=== PATIENT | female | born 1950 | race Caucasian/White ===

== ENCOUNTER 2017-01-07 18:53 | Observation (INO) | payer MEDICARE, OTHER ==
[2017-01-07] VITALS (16 sets, daily range): BP systolic 105–147; BP diastolic 54–86; PULSE 82–150; RESP 8–17; O2SAT 96–99
[~2017-01-07] VITALS: Ht 167.6 cm; Wt 78.5 kg
[2017-01-07] MEDS ORDERED: Adenosine 3 mg/mL 2 mL Inj ONE (19:09)
--- NOTE | 2017-01-07 19:09 | ED.REPORT ---
HPI-Chest Pain 40 and Over Date of Service Jan 07, 2017 ED Provider: Quentin Flores DO Patient is a 66 year old female who presents to the ED complaining of intermittent heart palpitations since last night. Associated symptoms include nausea, weakness and lightheadedness. She denies diarrhea. Patient reports that while she was at dinner last night and she felt her heart start racing. She went to bed and felt normal this morning until she was holding her grandson this afternoon, when she began to feel weak and her heart started racing again. Patient states that she has never experienced this before but a year ago her doctor informed her that she had an irregular heartbeat. When she went in for testing, it was unremarkable. Nursing Notes Stated Complaint: DIZZY, HEART RACING, PULSE 140-143 Chief Complaint: Dysrhythmia/Cardiac Nursing Notes Reviewed: Yes Allergies: Coded Allergies: No Known Allergies (Verified , 01/05/04) No Active Prescriptions or Reported Meds General Time Seen by MD: 19:08 Chief Complaint Other (heart palpitations) Hx Obtained From: Patient Arrived By: Walk-in Sudden in Onset?: Yes Onset Occurred: Yesterday Symptom Duration: Intermittent Recent Healthcare: No recent doctor visit, No recent hospitalization Similar Sx Previous: No Past Medical History Past Medical History none reported Smoking History Unknown if Ever Smoker Social History Alcohol Use: "Social" Other Social History: Good social support Ambulatory Status Independent Review of Systems Constitutional: Reports: Weakness - generalized, Denies: Chills, Fever Respiratory: Denies: Non-productive cough, Shortness of breath Cardiovascular: Reports: Palpitations GI: Reports: Nausea, Denies: Diarrhea, Vomiting Skin: Denies Diaphoresis Neurologic: Reports: Lightheaded Complete sys rev & neg: except as marked. Physical Exam Initial Vital Signs Vital Signs (First) Date Time Temp Pulse Resp B/P Pulse Ox O2 Delivery O2 Flow Rate FiO2 01/07/17 19:00 145 17 141/84 98 Room Air Initial VS: Reviewed General/Constitutional: Awake, Alert Distress / Hydration: Positive: Distress moderate Respiratory / Chest: Atraumatic, Breath sounds NL, Breath sounds = bilat, No respiratory distress Cardiovascular: Regular rhythm, Heart sounds NL Heart Rate / Rhythm: Positive: Tachycardia Abdomen: Atraumatic, Soft, Non-tender Interpretation & Diagnostics Lab Results Interpretation Result Diagram: 01/08/1739901/08/17399 Test 01/07/17 19:10 Magnesium Level 2.1mg/dL (1.6-2.6) Thyroid Stimulating Hormone (TSH) 0.005uIU/mL (0.450-4.500) Free Thyroxine 1.74ng/dL (0.82-1.77) ECG Interpretation ECG Interpretation: sinus tachycardia, rate [address] depression, anterolateral leads Time: 19:05 Interpreted by: ED physician X-Ray Chest Interpretation Chest Xray Interpretation: IMPRESSION: No acute disease. Pacemaking/defibrillation leads overlie the heart Dictated by: Juwan Ureña M.D. on 01/07/2017 at 19:50 Approved by: Juwan Ureña M.D. on 01/07/2017 at 19:51 View: Portable, 1 view Interpretation / Wet Read by: Interpret - Radiologist Procedures Proced Mod Sedation/Analgesia Time: 21:32 Procedure Performed by: ED physician Sedation Time: 10 - 15 min Consent / Setup: Informed consent provided, Consent from patient, Time-out performed Indication: Other (SVT treatment) Preparation: environmental monitoring specialist applied, Pulse oximeter applied, Constant attendance, IV access established, Eval last meal time, Supplemental oxygen, Procedure explained, Suction available VS Prior to Procedure: All vital signs normal Mallampati: Class & Anatomy: 2 top tonsil/uvula/palate Airway Exam: Normal facial anatomy, Normal neck anatomy, Normal anatomy CVS/Resp Exam: Normal breath sounds, Normal heart sounds Neuro Exam: Alert Sedation: Sedation: Etomidate, Sedation: Versed ASA Classification: 2 mild systemic disease Response During Procedure: Handled secretions adeq, Maintained airway well, Oxygenation stable, Sedation appropriate, Vital signs stable Complications During/After: None Reversal: None required Mental Status After Procedure: Alert Post-Procedure: Pt rtn pre-proc baseline, Vital signs normal Attestation: I performed procedure, I performed sedation SVT Treatment cardioversion performed at 2134 100 Joules Time: 19:30 Procedure Performed by: ED physician Consent / Timeout / Setup: Consent from patient, Time-out performed, Pulse oximeter applied, environmental monitoring specialist applied Adenosine IV Attempt # 1: Dose 6mg IVP, Unsuccessful Adenosine IV Attempt # 2: Dose 12mg IVP, Transient success Synch Cardioversion: Successful Procedural Sedation/Analgesia: Sedation: Etomidate, Sedation: Versed Post-Procedure: No complications, Tolerated procedure well, Patient stable Re-Eval/Medical Decision Med Decision/Clinical Course After 12mg of Adenosine was given, EKG showed clear signs of atrial flutter. Max dose was given with transient success from sinus back to atrial flutter. Consulted cardio who recommended cardioversion and admit for overnight observation. Patient went back into sinus rhythm after successful cardioversion. Time of Eval: 19:15 Re-Evaluation/Progress Note: Discussed plan for adenosine SVT treatment. Patient understands and agrees to plan. All questions were addressed. Time of Eval: 19:40 Patient Status: Condition improved Re-Evaluation/Progress Note: Discussed results and plan for admission. Patient understands and agrees to plan. All questions were addressed. Time of Eval: 20:38 Re-Evaluation/Progress Note: Patient is still in atrial flutter Time of Eval: 20:58 Re-Evaluation/Progress Note: Discussed plan for cardioversion. Patient understands and agrees to plan. All questions were addressed. Consultation #1: Referral / Consult Name: Alena Weiner MD Consulted With: Cardiology Call Returned at: 20:36 Web Services Manager: Agrees with eval, Agrees with plan Note: Consult with Dr. Weiner, zoo director, who recommends cardioversion for the patient. Consultation #2: Referral / Consult Name: Zelda Plascencia DO Consulted With: Hospitalist Call Returned at: 22:15 Web Services Manager: Agrees with eval, Agrees with plan, Accepts admit Counseled Regarding: Diagnosis, Lab results, Need for admission Discharge & Departure Primary Impression: Atrial flutter Atrial flutter type: unspecified Qualified Code: I48.92 - Unspecified atrial flutter Disposition: ADMITTED TO HOSPITAL Discharge Condition All VS Reviewed: Yes Condition: Stable Referrals: Dina Samayoa ND, Diana (PCP) Crit Care Except Billable Proc Time Spent: 75-104 minutes Services Performed: Patient management by me, Time spent at bedside, Reviewing test results, Reviewing imaging, Discussing patient care, Documentation in record, Time with fam/surrogate Scribe Attestation Portions of this note were transcribed by Kelly Choi. I, Dr. Flores personally performed the history, physical exam and medical decision-making; I reviewed and confirmed the accuracy of the information in the transcribed note. Signed by: Kyle Mandujano, 01/07/17 and 1832. copies to: Dina Samayoa ND, Diana Quentin Flores Jan 07, 2017 19:09 StephJodee Upton Jan 07, 2017 19:39 Proced Mod Sedation/Analgesia Time: 21:32 Procedure Performed by: ED physician Sedation Time: 10 - 15 min Consent / Setup: Informed consent provided, Consent from patient, Time-out performed Indication: Other (SVT treatment) Preparation: environmental monitoring specialist applied, Pulse oximeter applied, Constant attendance, IV access established, Eval last meal time, Supplemental oxygen, Procedure explained, Suction available VS Prior to Procedure: All vital signs normal Mallampati: Class & Anatomy: 2 top tonsil/uvula/palate Airway Exam: Normal facial anatomy, Normal neck anatomy, Normal anatomy CVS/Resp Exam: Normal breath sounds, Normal heart sounds Neuro Exam: Alert Sedation: Sedation: Etomidate, Sedation: Versed ASA Classification: 2 mild systemic disease Response During Procedure: Handled secretions adeq, Maintained airway well, Oxygenation stable, Sedation appropriate, Vital signs stable Complications During/After: None Reversal: None required Mental Status After Procedure: Alert Post-Procedure: Pt rtn pre-proc baseline, Vital signs normal Attestation: I performed procedure, I performed sedation SVT Treatment cardioversion performed at 2134 100 Joules Time: 19:30 Procedure Performed by: ED physician Consent / Timeout / Setup: Consent from patient, Time-out performed, Pulse oximeter applied, environmental monitoring specialist applied Adenosine IV Attempt # 1: Dose 6mg IVP, Unsuccessful Adenosine IV Attempt # 2: Dose 12mg IVP, Transient success Synch Cardioversion: Successful Procedural Sedation/Analgesia: Sedation: Etomidate, Sedation: Versed Post-Procedure: No complications, Tolerated procedure well, Patient stable Re-Eval/Medical Decision Med Decision/Clinical Course After 12mg of Adenosine was given, EKG showed clear signs of atrial flutter. Max dose was given with transient success from sinus back to atrial flutter. Consulted cardio who recommended cardioversion and admit for overnight observation. Patient went back into sinus rhythm after successful cardioversion. Time of Eval: 19:15 Re-Evaluation/Progress Note: Discussed plan for adenosine SVT treatment. Patient understands and agrees to plan. All questions were addressed. Time of Eval: 19:40 Patient Status: Condition improved Re-Evaluation/Progress Note: Discussed results and plan for admission. Patient understands and agrees to plan. All questions were addressed. Time of Eval: 20:38 Re-Evaluation/Progress Note: Patient is still in atrial flutter Time of Eval: 20:58 Re-Evaluation/Progress Note: Discussed plan for cardioversion. Patient understands and agrees to plan. All questions were addressed. Consultation #1: Referral / Consult Name: Alena Weiner MD Consulted With: Cardiology Call Returned at: 20:36 Web Services Manager: Agrees with eval, Agrees with plan Note: Consult with Dr. Weiner, zoo director, who recommends cardioversion for the patient. Consultation #2: Referral / Consult Name: Zelda Plascencia DO Consulted With: Hospitalist Call Returned at: 22:15 Web Services Manager: Agrees with eval, Agrees with plan, Accepts admit Counseled Regarding: Diagnosis, Lab results, Need for admission Discharge & Departure Primary Impression: Atrial flutter Atrial flutter type: unspecified Qualified Code: I48.92 - Unspecified atrial flutter Disposition: ADMITTED TO HOSPITAL Discharge Condition All VS Reviewed: Yes Condition: Stable Referrals: Dina Samayoa ND, LAc (PCP) Crit Care Except Billable Proc Time Spent: 75-104 minutes Services Performed: Patient management by me, Time spent at bedside, Reviewing test results, Reviewing imaging, Discussing patient care, Documentation in record, Time with fam/surrogate Scribe Attestation Portions of this note were transcribed by Kelly Choi. I, Dr. Flores personally performed the history, physical exam and medical decision-making; I reviewed and confirmed the accuracy of the information in the transcribed note. Signed by: Kyle Mandujano, 01/07/17 and 1832. copies to: Dina Samayoa ND, LAc Beia, Todd P DO Jan 07, 2017 19:09 Jodee Choi Jan 07, 2017 19:39
[2017-01-07] MEDS ORDERED: Diltiazem 5 mg/mL 5 mL Inj IVPUSH ONE ×2 (19:10→19:45)
[2017-01-07] MEDS ORDERED: Adenosine 3 mg/mL 2 mL Inj IVPUSH ONE ×2 (19:10)
[2017-01-07 19:27] LABS: BASOPHILS % (AUTO) 0.2 % (0-3); EOSINOPHILS % (AUTO) 0.4 % (0-5); MONOCYTES % (AUTO) 8.8 % (4-12); Mean Corpuscular Hemoglobin 30.2 pg (27.0-35.0); Mean Corpuscular Volume 88.4 fL (81-100); NEUTROPHILS % (AUTO) 67.1 % (40-74); Platelet Count 255 bil/L (150-400)
[2017-01-07] MEDS ORDERED: Diltiazem Inj 125 MG in 0.9% Sodium Chloride 100 ML, Pharmacy To Mix 1 EA IV SCH ×2 (19:35→19:45)
[2017-01-07 19:50] LABS: TROPONIN T < 0.010 ug/L (0.0-0.011)
--- NOTE | 2017-01-07 19:53 | DRSVH ---
PROCEDURE: X-RAY CHEST ONE VIEW, PORTABLE ([id number]) INDICATIONS: tachcardia TECHNIQUE: One view of the chest was acquired. COMPARISON: None. FINDINGS: Surgical changes and devices: None. Lungs and pleura: No pleural effusions or pneumothorax. Lungs are clear. Mediastinum: Mediastinal contours appear normal. Heart size is normal. Bones and chest wall: No suspicious bony lesions. Overlying soft tissues appear unremarkable. IMPRESSION: No acute disease. Pacemaking/defibrillation leads overlie the heart Dictated by: Juwan Ureña M.D. on 01/07/2017 at 19:50 Approved by: Juwan Ureña M.D. on 01/07/2017 at 19:51
[2017-01-07 19:59] LABS: Magnesium 2.1 mg/dL (1.6-2.6)
[2017-01-07] MEDS ORDERED: Etomidate 2 mg/mL 20 mL Inj IV ONE (21:10)
[2017-01-07] MEDS ORDERED: MeTOProlol 1 mg/mL 5 mL Inj IVPUSH SCH (21:15)
[2017-01-07] MEDS ORDERED: Heparin 5,000 Unit/mL Inj IVPUSH ONE (21:45)
[2017-01-07] MEDS ORDERED: Heparin 25K Unit/500mL 0.45 NS 25,000 UNIT in IV Premix 1 EACH IV ONE (21:45)
--- NOTE | 2017-01-07 22:34 | PCM.HPMED ---
Subjective Date of Service Jan 07, 2017 Primary Provider: Admitting Physician: Zelda Plascencia DO Primary Care Physician: Jered Attending Physician: Zelda Plascencia DO Admit Status: From the Emergency Department Chief Complaint: Complains of intermittent generalized weakness fatigue shortness of breath, dyspnea and lightheadedness associated with her intermittent heart racing for the past 2 days. History of Present Illness: Olivia is a pleasant 66 year old female with history of 10 pregnancies, and 5 current living children status post hysterectomy, with chronic hypothyroidism treated by her [facility] with [place] thyroid. She presented to the ED today with complaint of new onset rapid onset extreme fatigue and associated with a rapid heart rate she described as palpitations on the evening prior to admission while eating dinner. She states she went to bed that night and felt fine the next morning. She was able to attend hinduism and then go to the park with her family. She states that when she went to pickers material handlers her grandson she again started to feel extreme fatigue with shortness of breath dyspnea and more palpitations. She states that she was unable to carry her grandson and had to put him down. He was then able to walk a little further however with difficulty because of her shortness of breath. This required her to sit down and rest. She returned home with her Jesús and took her blood pressure which was in the normal range but her heart rate was in the 140s. This prompted them to come to the emergency department. Associated symptoms include the sensation that she was ill, generalized weakness and lightheadedness. The patient states her Naturopathic physician recently had her [place] Thyroid dose increased from 240 mg daily to 360 mg daily. She states she also takes an additional medication "Thyrocare" supplement. She denies chest pain, cough, fevers, chills, nausea, vomiting, abdominal pain, headaches, seizures, sore throat, diarrhea. Patient states that she has never experienced this before but a year ago her doctor informed her that she had an irregular heartbeat. Patient was reportedly evaluated with further testing that returned unremarkable. In the ED: Patient was successfully cardioverted, and started on heparin drip ( PTT 25.7), patient was started on diltiazem drip for rate control in the ED. patient was then admitted to the hospital for continuous cardiac monitoring and further management for her atrial flutter. Chest x-ray showed no acute cardiopulmonary changes Vital signs: Pulse 147, blood pressure 121/66 with a map of 84, 97% on room air. Hemogram showed: WBC 10.2, PMNs 67.1%, lymphs 23.2%, H/H 15.3/44.8, platelets 255. Chemistry panel: Glucose 123, calcium 10.5, TSH low at 0.005, free T4 1 0.74 PTT 25.7 EKG showed sinus tachycardia with a rate of 143, borderline ST depression in the anterior lateral leads. Troponin was 0.010 Review of Systems: A comprehensive review of systems was conducted and was negative except as mentioned in history of present illness. Allergies Coded Allergies: No Known Allergies (Verified , 01/05/04) Home Medications [place] Thyroid 360 mg daily(note natural thyroid medication is dosed in milligrams not micrograms) Thyrocare unknown dose PMH Hypothyroidism Surgical History Hysterectomy bladder Sling Family History Mother with hx heart disease and hs of Parkinson's Social History Hx Alcohol Use: No (OCCASIONAL) Hx Substance Use: No Hx Tobacco Use: No Smoking Status: Unknown if Ever Smoker Living Arrangement: with Family (with her Jesús) Exam Vital Signs Vital Sign - Last Date Time Temp Pulse Resp B/P Pulse Ox O2 Delivery O2 Flow Rate FiO2 01/07/17 21:49 82 13 107/58 97 Room Air Exam General: Alert and oriented 3, in no acute distress, resting comfortably in bed , speaking in full sentences HEENT: NC/AT, eyes, PERRLA, EOMI, neck, soft supple, no adenopathy, no JVD, no masses, no thyromegaly, throat mucous membranes pink and moist, no erythema, no exudates, no tonsillar swelling, no uvular deviation. Orthodontics lower front teeth Lungs: CTAB all theodore, no wheezes, no rhonchi, no crackles, no adventitious lung sounds, no use of accessory muscles of respiration, good air movement, good respiratory effort. Heart: Regular rate and rhythm, no murmur, S1-S2 present, no rub, no click, no distant heart sounds, GI / Genitourinary: No CVA tenderness, no suprapubic tenderness, no [place] catheter, Extremities: Muscle strength, 5 out of 5 upper and symmetric bilaterally, pulses equal and symmetric upper/lower extremity including radial and dorsalis pedis, no edema Neurologic: Grossly neurologically intact, speaking in full sentences, no focal neurological signs. Skin: Lying, intact with no rash or erythema MSK: no joint erythema / edema Lymph: no cervical or supraclavicular lymphadenopathy Psychiatric: Mood is cheerful and mood and affect are congruent and appropriate. Lab and Diagnostics Result Diagram: 01/07/17190901/07/171909 X-Rays, CTs and MRIs Date of Service: 01/07/171903 PROCEDURE: X-RAY CHEST ONE VIEW, PORTABLE INDICATIONS: tachcardia Surgical changes and devices: None. Lungs and pleura: No pleural effusions or pneumothorax. Lungs are clear. Mediastinum: Mediastinal contours appear normal. Heart size is normal. Bones and chest wall: No suspicious bony lesions. Overlying soft tissues appear unremarkable. IMPRESSION: No acute disease. Pacemaking/defibrillation leads overlie the heart Dictated by: Juwan Ureña M.D. on 01/07/2017 at 19:50 Approved by: Juwan Ureña M.D. on 01/07/2017 at 19:51 Assessment & Plan Patient is a 66 year old female who presents to the ED complaining of intermittent heart palpitations since last night. Associated symptoms include nausea, weakness and lightheadedness. She denies diarrhea. Patient reports that while she was at dinner last night and she felt her heart start racing. She went to bed and felt normal this morning until she was holding her grandson this afternoon, began to feel weak and her heart started racing again. Patient states that she has never experienced this before but a year ago her doctor informed her that she had an irregular heartbeat. When she went in for testing, it was unremarkable. Patient was successfully cardioverted in the emergency room, and started on heparin drip (PTT 25.7), and was started on diltiazem drip for rate control. She was then admitted to the hospital for continuous cardiac monitoring and further management for her atrial flutter. # New-onset atrial flutter, with RVR, present on admission, active -She was successfully cardioverted in the ED and started on heparin drip. -Patient denies any chest pain. -Patient states that she was told by her primary care physician Concepcion Baxter one year ago that she had a irregular rhythm. At that time patient was not symptomatic. Patient denies any similar symptoms to her current complaint prior to these episodes. -Vital signs: Pulse 147, blood pressure 121/66 with a map of 84, 97% on room air. -EKG showed sinus tachycardia, rate 143, borderline ST depression in the anterior lateral leads -Hemogram showed: WBC 10.2, PMNs 67.1%, lymphs 23.2%, H/H 15.3/44.8, platelets 255. -Chemistry panel: Glucose 123, calcium 10.5, TSH low at 0.005, free T4 1 0.74 -Troponin was 0.010 -In ED patient was found to have atrial flutter at a rate of 130s to 140s -Chest x-ray showed no acute cardiopulmonary changes -Foreign Exchange Student Coordinator Dr. Weiner was consulted by the ED, and agrees with admission -Patient cardioverted successfully in the ED -Patient admitted to the hospital for continued medical treatment and observation. -Continuous cardiac monitoring with remote telemetry -We will start metoprolol XL 50 mg -If his rapid A. fib/flutter recurs we will plan to cardiovert patient -We will start anticoagulation heparin -We will repeat troponin # Chronic Hyporthyroidism, present on admission, active -TSH low at 0.005, free T4 within normal range at 1.74 -Patient is seen by a brittny Coyne for hypothyroidism -She states she takes [place] Thyroid, normally takes 240 , but had it increased over the past month or 2, up to 360 daily, patient states she additionally takes a [id number] supplement called "Thyrocare" -We will hold medication [place] thyroid and thyroidcare for now # Leukocytosis, mild, present on admission, active - WBC 10.2 without left shift -We will continue to monitor Disposition: Admitted to in patient service with expected length of stay greater than 2 days, secondary to severity of presenting symptoms, treatment plan, complexity of clinical work up, and risk of adverse events. CODE STATUS: Full code PCP: brittny Novoa DVT PE prophylaxis: Patient currently on heparin drip for atrial flutter Contact: The patient's , VTE Prophylaxis: Other (patient on heparin drip for atrial flutter) Resuscitation Status: CPR: Attempt Resuscitation Salinas Blanton DO Jan 07, 2017 22:34 Zelda Plascencia DO Jan 08, 2017 05:29
[2017-01-07] MEDS ORDERED: Ondansetron 2 mg/mL 2 mL Inj IVPUSH PRN (22:50)
[2017-01-07] MEDS ORDERED: Alum-Mag Hydrox-Simeth 30 mL Suspension PO PRN (22:50)
[2017-01-07] MEDS ORDERED: Polyethylene Glycol (PEG) 17 Gm Powder PO PRN (22:50)
[2017-01-07] MEDS ORDERED: THYR180T2 PO (22:54)
[2017-01-07] MEDS ORDERED: Heparin 25K Unit/500mL 0.45 NS 25,000 UNIT in IV Premix 1 EACH IV SCH (22:55)
[2017-01-07] MEDS ORDERED: MeTOProlol XL 50 mg ER24 Tablet PO SCH (22:55)
[2017-01-07] MEDS ORDERED: Heparin 5,000 Unit/mL Inj IVPUSH PRN (22:55)
[2017-01-07] MEDS: Sodium Chloride LOK Flush 10 mL Syringe IVFLUSH SCH (23:11)
--- NOTE | 2017-01-08 00:40 | NUR ---
NEW ADMIT Pt admitted to [facility], converted to SR in ED. Pt A&Ox3, Indep in room, denies chest pain, Cardiac Hep gtt @ 1200 units/hr. Addendum: 01/08/17 at 0552 by YADIRA RAGLAND RN hep gtt currently @ 1300 units/hr
[2017-01-08 03:05] VITALS: BP 106/70; PULSE 85; RESP 16; O2SAT 98
[2017-01-08 04:19] LABS: BASOPHILS % (AUTO) 0.3 % (0-3); EOSINOPHILS % (AUTO) 1.1 % (0-5); Mean Corpuscular Hemoglobin 30.2 pg (27.0-35.0); Mean Corpuscular Volume 89.2 fL (81-100); Platelet Count 205 bil/L (150-400)
[2017-01-08] MEDS ORDERED: MeTOProlol XL 25 mg ER24 Tablet PO SCH (08:30)
[2017-01-08 09:00] VITALS: BP 107/66; PULSE 93; RESP 16; O2SAT 97
[2017-01-08] MEDS: Sodium Chloride LOK Flush 10 mL Syringe IVFLUSH SCH (09:48)
[2017-01-08 10:47] VITALS: PULSE 89
--- NOTE | 2017-01-08 12:02 | DRSVH ---
[facility] [address] [place] [address] Echocardiogram Report Name: GINA DELANEY JStudy Date : 01/08/2017 Height: 66 in Hospital Exam Location: [facility] Weight: 173 lb Gender: Female BSA: 1.9 m2 : 1950 Age: 66 yrs BP: 106/70 mmHg Reason For Study: Atrial fibrillation Ordering Physician: Performed By: Jennifer ElmoreHiawatha [facility] HospitalIST [facility] Interpretation Summary The left ventricle is borderline dilated but left ventricular systolic function is normal without focal wall motion abnormalities with the ejection fraction estimated to be 55-60%. Diastolic function could not be accurately assessed due to unobtainable data. The right ventricle is borderline dilated but right ventricular systolic function is normal. The right ventricular systolic pressure is estimated at 46 mmHg assuming a right atrial pressure of 15 mm Hg. The left atrium is severely dilated and the right atrium is mildly dilated. There is moderate, perhaps moderately-severe mitral regurgitation and mild to moderate tricuspid regurgitation. There is no other significant valvular heart disease. The patient was in normal sinus rhythm during the exam. Procedure: A two-dimensional transthoracic echocardiogram with color flow and Doppler was performed. The study quality was technically good. There is no prior echocardiogram noted for this patient. The patient was in normal sinus rhythm during the exam. Left Ventricle: The left ventricle is borderline dilated. Left ventricular wall thickness is normal. Left ventricular systolic function is normal without focal wall motion abnormalities. The ejection fraction is estimated to be 55-60%. Diastolic function could not be accurately assessed due to unobtainable data. Right Ventricle: The right ventricle is borderline dilated. The right ventricular systolic function is normal. Atria: The left atrium is severely dilated. The right atrium is mildly dilated. The interatrial septum is intact with no evidence for an atrial septal defect. Mitral Valve: There is mild to moderate mitral annular calcification. The mitral valve leaflets appear mildly thickened, but open well. There is mild mitral valve prolapse. There is moderate mitral regurgitation. Aortic Valve: The aortic valve is trileaflet. The aortic valve opens well. No aortic regurgitation is present. Tricuspid Valve: The tricuspid valve is normal in structure and function. There is mild to moderate tricuspid regurgitation. The right ventricular systolic pressure is estimated at 46 mmHg assuming a right atrial pressure of 15 mm Hg. Pulmonic Valve: The pulmonic valve is normal in structure and function. There is trace pulmonic regurgitation. There is no other significant valvular heart disease. Great Vessels: The aortic root is normal size. The ascending aorta is normal in size. The pulmonary artery is normal size. The IVC is dilated (diameter is greater than 2.1 cm) and it collapses less than 50% with a sniff. This suggests a high right atrial pressure of 15 mm Hg. Pericardium/ Pleura There is no pericardial effusion. There is no pleural effusion. MMode/2D Measurements & Calculations LVIDd: 5.9 cm LA dimension: 4.3 cm RA long axis LVOT diam: 2.3 cm LVIDs: 3.8 cm AoV Opening FS: 35.4 % LA A2 area: 30.3 cm RA area EPSS: 0.44 cm LA A4 area: 31.8 cm Ao root diam IVSd: 0.80 cm LA length (vol) : 19.0 cm LVPWd: 0.92 cm RA vol asc Aorta Diam LA vol: 127.8 ml : 60.0 ml LA vol index RA Ao Arch Diam (Prox : 31.9 mm2 Trans): 2.7 cm IVC diam: 2.2 cm LV cavanaugh. diameter/BSA LV sys. diameter/BSA RVD1 (basal) TAPSE: 2.5 cm (cm/m^2): 3.1 (cm/m^2): 2.0 Doppler Measurements & Calculations Ao V2 max TR max juan: 279.1 cm/sec Ao V2 mean LV V1 max PG : 105.8 cm/sec TR max P.1 mmHg : 77.6 cm/sec Ao max P.5 mmHgPA V2 max: 56.9 cm/sec Ao V2 VTI LV V1 VTI Ao mean PG PA mean P.79 mmHg : 16.8 cm LVOT Max Juan BENITO(V,D): 3.7 cm2 : 91.3 cm/sec BENITO(I,D): 3.5 cm sev ratio: 0.83 PA V2 mean BENITO indexed to BSA : 42.6 cm/sec (cm^2/m^2): 1.9 PA pr(Accel) : 39.1 mmHg Reading Physician:12:01 PM
[2017-01-08 12:13] VITALS: BP 108/67; PULSE 85; RESP 18; O2SAT 97
--- NOTE | 2017-01-08 14:42 | PCM.DIMED ---
NegritaKojo Carroll DO 01/08/17 1438: Discharge Instructions Date of Service Jan 08, 2017 Dates of Hospitalization Jan 07, 2017 at 22:01 Discharge Diagnosis Discharge Diagnosis # New-onset atrial flutter, with RVR, present on admission, active # Chronic Hyporthyroidism, present on admission, active # Leukocytosis, mild, present on admission, active Medication Instructions Additional med instructions We recommend that you switch the [place] thyroid to Synthroid if possible. If not , please decrease the dose of the [place] thyroid medication. Diet Discharge Diet: Heart Healthy Activity Discharge Activity: Limited until seen by PCP Call your provider Call your provider for: Shortness of breath, Chest pain, Weakness (unilateral) Patient Instructions Patient Instructions - You were found to have rapid heart rate with an irregular rhythm called Atrial Flutter. The Echocardiogram revealed that you have a mitral valve regurgitation, which is fairly common in the people at your age. This could contribute to the arrhythmia. - You were cardioverted in the ED and your rhythm has been normal since. There is no indication to start anticoagulation (blood thinner) at this point. - This is a common, mostly benign condition. We recommend that you get a referral for Cardiology from your primary care doctor for follow up on the valvular disease. - Your thyroid function is also abnormal, which is likely due to the over corrected thyroid medication. The [place] thyroid dose you are taking might be too high. We highly recommend that you take prescribed Synthroid or Levothyroxine as this can be monitored with blood test. Please talk to your doctor about this and adjust it accordingly. - Follow up with your primary care doctor in 1 week. - Limit your daily caffeine intake to 1 serving per day. - Go tot hospital if your symptoms return or if you develop chest pain, shortness of breath, headache, dizziness, nausea, or vomiting. - If you want all the test results from this hospital visit, please go to Medical Record. The nurse will give you instructions about this before discharge. Follow-up Provider: NOPCP Follow-up with PCP in: 1 week Davis Schneider MD 01/09/17 0505: Discharge Instructions Attending's Statement Patient seen and examined with house staff.. Agree with all attached documentation. Kojo Rees DO Jan 08, 2017 14:38 Davis Schneider MD Jan 09, 2017 13:25
--- NOTE | 2017-01-08 15:17 | NUR ---
Discharge Patient in SR 80-90s. Denies chest pain/discomfort/dyspnea/dizziness. VSS. Discharge instructions printed and reviewed verbally with patient. Patient left until via wc with all personal belongings, accompanied by her and discharged home via personal vehicle.
--- NOTE | 2017-01-08 15:52 | NUR ---
Social Work Note: Initial Assessment/Discharge Data& Assessment: EMR reviewed. JULIO met with pt and pt at bedside to confirm discharge plan and assess for any unmet needs, SW role explained. Per pt is medically ready to discharge. Olivia Perez is a 66 year old female admitted under observation on 01/07/2017 for AFIB R/O RVR. Per pt is medically improved and ready for discharge. Pt has [id number] insurance coverage and sees Concepcion Baxter MD for primary care. Pt lives in [place] with her spouse and is independent at baseline with all ADL's with no DME needs. Pt does not have HH or SNF hx. Pt does not have LTC or VA insurance. Pt and pt are working on updating their living will, SW requested a copy of DPOA.AD paperwork when possible for chart. Pt transporting pt home. Pt and pt deny any other needs. No other discharge needs identified. All update and agreeable to plan. Plan: Per pt is medically ready to discharge home via POV. Pt and pt deny any other needs. No other discharge needs identified. All update and agreeable to plan. JATIN Adame Addendum: 01/08/17 at 1601 by ZENAIDA RUIZ Amended: Links added.
--- NOTE | 2017-01-08 16:50 | PCM.DC.MED ---
Discharge Summary Date of Service Jan 08, 2017 Dates of Hospitalization Date of Hospital Admission Jan 07, 2017 at 22:01 Date of Discharge: Jan 08, 2017 Providers: Admitting Physician: Davis Schneider MD Primary Care Physician: Nopidania Attending Physician: Davis Schneider MD Diagnosis at Time of Discharge Diagnosis at Time of Discharge # New-onset atrial flutter, with RVR, present on admission, active # Chronic Hyporthyroidism, present on admission, active # Leukocytosis, mild, present on admission, resolved Procedures XRay, CTs & MRIs Date of Service: 01/07/171903 PROCEDURE: X-RAY CHEST ONE VIEW, PORTABLE INDICATIONS: tachcardia Surgical changes and devices: None. Lungs and pleura: No pleural effusions or pneumothorax. Lungs are clear. Mediastinum: Mediastinal contours appear normal. Heart size is normal. Bones and chest wall: No suspicious bony lesions. Overlying soft tissues appear unremarkable. IMPRESSION: No acute disease. Pacemaking/defibrillation leads overlie the heart Dictated by: Juwan Ureña M.D. on 01/07/2017 at 19:50 Approved by: Juwan Ureña M.D. on 01/07/2017 at 19:51 Cardiac Echo Impression Interpretation Summary The left ventricle is borderline dilated but left ventricular systolic function is normal without focal wall motion abnormalities with the ejection fraction estimated to be 55-60%. Diastolic function could not be accurately assessed due to unobtainable data. The right ventricle is borderline dilated but right ventricular systolic function is normal. The right ventricular systolic pressure is estimated at 46 mmHg assuming a right atrial pressure of 15 mm Hg. The left atrium is severely dilated and the right atrium is mildly dilated. There is moderate, perhaps moderately-severe mitral regurgitation and mild to moderate tricuspid regurgitation. There is no other significant valvular heart disease. The patient was in normal sinus rhythm during the exam. Brief History Olivia is a pleasant 66 year old female with history of 10 pregnancies, and 5 current living children status post hysterectomy, with chronic hypothyroidism treated by her [facility] with [place] thyroid. She presented to the ED today with complaint of new onset rapid onset extreme fatigue and associated with a rapid heart rate she described as palpitations on the evening prior to admission while eating dinner. She states she went to bed that night and felt fine the next morning. She was able to attend orthodox and then go to the park with her family. 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 She states that she was unable to carry her grandson and had to put him down. He was then able to walk a little further however with difficulty because of her shortness of breath. This required her to sit down and rest. She returned home with her Jesús and took her blood pressure which was in the normal range but her heart rate was in the 140s. This prompted them to come to the emergency department. Associated symptoms include the sensation that she was ill, generalized weakness and lightheadedness. The patient states her Naturopathic physician recently had her [place] Thyroid dose increased from 240 mg daily to 360 mg daily. She states she also takes an additional medication "Thyrocare" supplement. She denies chest pain, cough, fevers, chills, nausea, vomiting, abdominal pain, headaches, seizures, sore throat, diarrhea. Patient states that she has never experienced this before but a year ago her doctor informed her that she had an irregular heartbeat. Patient was reportedly evaluated with further testing that returned unremarkable. In the ED: Patient was successfully cardioverted, and started on heparin drip ( PTT 25.7), patient was started on diltiazem drip for rate control in the ED. patient was then admitted to the hospital for continuous cardiac monitoring and further management for her atrial flutter. Chest x-ray showed no acute cardiopulmonary changes Vital signs: Pulse 147, blood pressure 121/66 with a map of 84, 97% on room air. Hemogram showed: WBC 10.2, PMNs 67.1%, lymphs 23.2%, H/H 15.3/44.8, platelets 255. Chemistry panel: Glucose 123, calcium 10.5, TSH low at 0.005, free T4 1 0.74 PTT 25.7 EKG showed sinus tachycardia with a rate of 143, borderline ST depression in the anterior lateral leads. Troponin was 0.010 Hospital Course Patient is a 66 year old female who presents to the ED complaining of intermittent heart palpitations since last night. Associated symptoms include nausea, weakness and lightheadedness. She denies diarrhea. Patient reports that while she was at dinner last night and she felt her heart start racing. She went to bed and felt normal this morning until she was holding her grandson this afternoon, began to feel weak and her heart started racing again. Patient states that she has never experienced this before but a year ago her doctor informed her that she had an irregular heartbeat. When she went in for testing, it was unremarkable. Patient was successfully cardioverted in the emergency room , and started on heparin drip (PTT 25.7), and was started on diltiazem drip for rate control. She was then admitted to the hospital for continuous cardiac monitoring and further management for her atrial flutter. # New-onset atrial flutter, with RVR, present on admission, active -She was successfully cardioverted in the ED and started on heparin drip. Patient denies any chest pain. -Patient states that she was told by her primary care physician Concepcion Baxter one year ago that she had a irregular rhythm. At that time patient was not symptomatic. Patient denies any similar symptoms to her current complaint prior to these episodes. -EKG showed sinus tachycardia, rate 143, borderline ST depression in the anterior lateral leads -Troponin was negative x2 -In ED patient was found to have atrial flutter at a rate of 130s to 140s. Patient cardioverted successfully in the ED -Chest x-ray showed no acute cardiopulmonary changes -Continuous cardiac monitoring with remote telemetry, which showed normal sinus rhythm overnight. -Echo showed moderate mitral regurgitation, which could contribute to the aflutter. However, it is more likely that her over-corrected thyroid was the main cause. -Patient was given metoprolol XL 25 mg daily. But her HR normalized and BP was low, so this was discontinued at discharged. # Chronic Hyporthyroidism, present on admission, active -TSH low at 0.005, free T4 within normal range at 1.74 -Patient is seen by a piler Dr. Cristian Coyne for hypothyroidism -She states she takes [place] Thyroid, normally takes 240 , but had it increased over the past month or 2, up to 360 daily, patient states she additionally takes a xokf-los-nevctvm supplement called "Thyrocare" -We recommended that the patient switch from [place] thyroid to Synthroid, but the patient refused at this time. She stated that she called her doctor and the [place] thyroid has been reduced back to 240. # Mitral Regurgitation, presume chronic, stable. - Echo showed moderate regurgitation. - Patient will need Cardiology referral as outpatient. # Leukocytosis, mild, present on admission, resolved. - WBC 10.2 without left shift on admission. This has resolved on the day of discharge. CODE STATUS: Full code PCP: brittny Diaz DVT PE prophylaxis: Patient currently on heparin drip for atrial flutter Contact: The patient's , Exam Vital Signs (Last) Date Time Temp Pulse Resp B/P Pulse Ox O2 Delivery O2 Flow Rate FiO2 01/08/17 12:13 36.9 85 18 108/67 97 Room Air Exam General: Alert and oriented 3, in no acute distress, resting comfortably in bed , speaking in full sentences HEENT: NC/AT, eyes, PERRLA, EOMI, neck, soft supple, no adenopathy, no JVD, no masses, no thyromegaly. Lungs: CTAB all theodore, no wheezes, no rhonchi, no crackles, no adventitious lung sounds, no use of accessory muscles of respiration, good air movement, good respiratory effort. Heart: Regular rate and rhythm, no murmur, S1-S2 present, no rub, no click. GI / Genitourinary: No CVA tenderness, no suprapubic tenderness, no [place] catheter, Extremities: no edema Neurologic: Grossly neurologically intact, speaking in full sentences, no focal neurological signs. Skin: Lying, intact with no rash or erythema Psychiatric: Mood and affect are congruent and appropriate. Test 01/07/17 19:10 01/07/17 22:15 01/08/17 01:35 01/08/17 04:00 Magnesium Level 2.1mg/dL (1.6-2.6) Thyroid Stimulating Hormone (TSH) 0.005uIU/mL (0.450-4.500) Free Thyroxine 1.74ng/dL (0.82-1.77) Hold Blue Top Tube Received (Received) Troponin T 0.010ug/L (0.0-0.011) White Blood Count 7.2th/mm3 (3.8-10.1) Red Blood Count 4.24mil/mm3 (3.90-5.20) Hemoglobin 12.8g/dL (12.0-15.6) Hematocrit 37.8% (35.0-46.0) Mean Corpuscular Volume 89.2fL (81-100) Mean Corpuscular Hemoglobin 30.2pg (27.0-35.0) Mean Corpuscular Hemoglobin Concent 33.9% (32.0-37.0) Red Cell Distribution Width 13.3% (12.3-15.4) Platelet Count 205bil/L (150-400) Neutrophils (%) (Auto) 33.0% (40-74) Lymphocytes (%) (Auto) 56.5% (14-46) Monocytes (%) (Auto) 9.0% (4-12) Eosinophils (%) (Auto) 1.1% (0-5) Basophils (%) (Auto) 0.3% (0-3) Sodium Level 142mEq/L (134-144) Potassium Level 4.0mEq/L (3.5-5.2) Chloride Level 109mEq/L (97-108) Carbon Dioxide Level 21mmol/L (18-29) Blood Urea Nitrogen 14mg/dL (8-27) Creatinine 0.39mg/dL (0.57-1.00) Estimat Glomerular Filtration Rate 235mL/min (>59) Glucose Level 99mg/dL (60-99) Calcium Level 9.1mg/dL (8.5-10.1) Total Bilirubin 1.0mg/dL (0.0-1.2) Aspartate Amino Transf (AST/SGOT) 19U/L (0-50) Alanine Aminotransferase (ALT/SGPT) 16U/L (0-32) Alkaline Phosphatase 55U/L (25-165) Total Protein 5.4g/dL (6.4-8.4) Albumin 3.4g/dL (3.4-5.0) Test 01/08/17 10:22 Activated Partial Thromboplast Time 67.9sec (22.8-33.0) Discharge Medications No Active Prescriptions or Reported Meds Additional med instructions We recommend that you switch the [place] thyroid to Synthroid if possible. If not , please decrease the dose of the [place] thyroid medication. Followup Plan Disposition: Home Discharge Diet: Heart Healthy Discharge Activity: Limited until seen by PCP Patient Instructions - You were found to have rapid heart rate with an irregular rhythm called Atrial Flutter. The Echocardiogram revealed that you have a mitral valve regurgitation, which is fairly common in the people at your age. This could contribute to the arrhythmia. - You were cardioverted in the ED and your rhythm has been normal since. There is no indication to start anticoagulation (blood thinner) at this point. - This is a common, mostly benign condition. We recommend that you get a referral for Cardiology from your primary care doctor for follow up on the valvular disease. - Your thyroid function is also abnormal, which is likely due to the over corrected thyroid medication. The [place] thyroid dose you are taking might be too high. We highly recommend that you take prescribed Synthroid or Levothyroxine as this can be monitored with blood test. Please talk to your doctor about this and adjust it accordingly. - Follow up with your primary care doctor in 1 week. - Limit your daily caffeine intake to 1 serving per day. - Go tot he hospital if your symptoms return or if you develop chest pain, shortness of breath, headache, dizziness, nausea, or vomiting. - If you want all the test results from this hospital visit, please go to Medical Record. The nurse will give you instructions about this before discharge. Follow-up Provider: NOPCP Follow-up with PCP in: 1 week Time spent 60 minutes Attending Statement Patient seen and examined with house staff. Agree with all attached DOCUMENTATION. Kojo Rees DO Jan 08, 2017 16:50 Davis Schneider MD Jan 09, 2017 13:34 Kojo Rees DO Jan 08, 2017 16:50 Follow-up Provider: NOPCP Follow-up with PCP in: 1 week Kojo Rees DO Jan 08, 2017 16:50
== END 2017-01-08 15:26 | disposition home or self-care (01) ==
LOC: SED 18:53 → PCC 22:01
PROVIDERS: ADMIT Hospitalist; ATTEND Hospitalist
DX: I48.92 Unspecified atrial flutter (principal); E03.9 Hypothyroidism, unspecified; D72.829 Elevated white blood cell count, unspecified; I34.8 Other nonrheumatic mitral valve disorders
CPT/HCPCS: 36415; 71010; 80053; 82948; 83735; 84439; 84443; 84484; 85025; 85730; 92960; 93005; 94770; 94799; 96365; 96366; 96375; 96376; 99152; 99291; 99292; C8929; G0378; J0153; J1644; J2250